=== PATIENT | male | born 1960 | race Caucasian/White ===

== ENCOUNTER 2020-12-12 19:13 | Emergency (ER) | payer MEDICAID ==
[~2020-12-12] VITALS: Ht 167.6 cm; Wt 70.0 kg
[2020-12-12] MEDS ORDERED: KETOROLAC 60MG/2ML VIAL IM ONE (19:30)
[2020-12-12] MEDS ORDERED: PROCHLORPERAZINE MALEATE 10MG TABLET PO ONE (19:30)
[2020-12-12] MEDS ORDERED: SUMATRIPTAN SUCCINATE 6MG/0.5ML VIAL SUBCUT ONE (19:30)
[2020-12-12] MEDS ORDERED: DIPHENHYDRAMINE 25MG CAPSULE PO ONE (19:30)
[2020-12-12 20:55] VITALS: BP 111/66
[2020-12-12] MEDS ORDERED: PSEU120T56 MT (21:04)
== END 2020-12-12 21:11 | disposition home or self-care (01) ==
LOC: ER 19:13
DX: J06.9 Acute upper respiratory infection, unspecified (principal); J45.909 Unspecified asthma, uncomplicated; Z20.822 Contact with and (suspected) exposure to COVID-19
CPT/HCPCS: 87426; 87804; 96372; 99284; J1885; J3030; Q0163; Q0164